=== PATIENT | male | born 1980 | race Caucasian/White ===

== ENCOUNTER 2021-03-29 13:49 | Emergency (ER) | payer OTHER | END 2021-03-29 15:05 | disposition home or self-care (01) | LOC: ER1 13:49 | DX: S00.81XA Abrasion of other part of head, initial encounter (principal); I10 Essential (primary) hypertension; Z23 Encounter for immunization; V49.9XXA Car occupant (driver) (passenger) injured in unspecified traffic accident, initial encounter | CPT/HCPCS: 90471; 90715; 99283 ==